=== PATIENT | female | born 1955 | race Caucasian/White ===

== ENCOUNTER 2024-01-07 10:05 | Day surgery (SDC) | payer MEDICARE ==
[2024-01-07] MEDS: IV FLUID CONTINUATION 1,000 ML IV ONE (10:33)
[2024-01-07 10:38] VITALS: TEMP 97.9
[2024-01-07] MEDS: LACTATED RINGERS 1,000 ML IV SCH (10:49)
[2024-01-07] MEDS: IPRATROPIUM-ALBUTEROL 3 ML NEB INHALATION ONE (11:07)
[2024-01-07] MEDS ORDERED: LIDOCAINE 1% INJ 10MG/ML (20 ML MDV) ONE (11:52)
[2024-01-07] MEDS ORDERED: PROPOFOL 10 MG/ML 20 ML VIAL IV ONE (11:52)
--- NOTE | 2024-01-07 12:13 | P.PCN ---
Date of Procedure: 01/07/24 Procedure(s) Performed: BRIEF HISTORY: Patient is a 68-year-old pleasant white female scheduled for an elective colonoscopy as a part of evaluation of chronic diarrhea with fecal incontinence for the last 11 years duration. Lately symptoms are getting worse. PROCEDURE PERFORMED: Colonoscopy with biopsy. PREOPERATIVE DIAGNOSIS: Chronic diarrhea and fecal incontinence of 10 years duration. IV sedation per Anesthesia. PROCEDURE: After informed consent was obtained, the patient, was brought into the endoscopy unit. IV sedation was administered by Anesthesia under continuous monitoring. Digital rectal examination revealed some scarring in the anal area. Initially the Olympus CF-160 flexible video colonoscope was then inserted in the rectum, gradually advanced into the sigmoid colon and further advancement was not possible because of acute angulation in this sigmoid colon. At this time the scope was removed. Colonoscopy was then introduced to the rectum and gradually advanced into the cecum with moderate to severe difficulty. Careful examination was performed as the scope was gradually being withdrawn. Ileocecal valve and the appendiceal orifice were visualized and appeared normal. Prep was excellent. Mucosa of the cecum, ascending colon, transverse colon, descending colon, sigmoid colon, appeared normal. There were patchy areas of erythema noted in the rectum and biopsies were done from this area for possible radiation proctitis. Biopsies were done from the ascending and descending colon to rule out microscopic/collagenous colitis. Retroflexion was performed in the rectum and no lesions were seen. The patient tolerated the procedure well. 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 She was advised to follow-up with the biopsy results.. In the meantime advised to continue with Lomotil 1 tablet twice daily. Follow- up in the office in 2 weeks. Recommend repeat screening colonoscopy in 10 years
[2024-01-07 12:18] VITALS: RESP 16
[2024-01-07 12:42] VITALS: BP 113/70; PULSE 74
== END 2024-01-07 13:05 | disposition home or self-care (01) ==
LOC: ORWHC2ENDO 10:05
PROVIDERS: ATTEND Internal Medicine Gastroenterology
CPT/HCPCS: 45380; 88305